=== PATIENT | female | born 1965 | race African-American/Black ===

== ENCOUNTER 2016-09-16 05:09 | Emergency (ER) | payer OTHER | END 2016-09-16 06:23 | disposition home or self-care (01) | LOC: BURERS 05:09 | DX: F41.0 Panic disorder [episodic paroxysmal anxiety] (principal); I10 Essential (primary) hypertension; E78.5 Hyperlipidemia, unspecified; F32.9 Major depressive disorder, single episode, unspecified | CPT/HCPCS: 93005 ==

== ENCOUNTER 2021-01-12 13:20 | Emergency (ER) | payer MEDICARE, OTHER, SELFPAY | END 2021-01-12 13:51 | disposition home or self-care (01) | LOC: BURERS 13:20 | DX: I10 Essential (primary) hypertension (principal); E78.5 Hyperlipidemia, unspecified; Z79.899 Other long term (current) drug therapy | CPT/HCPCS: 99283 ==

== ENCOUNTER 2021-02-07 19:55 | Emergency (ER) | payer MEDICARE ==
[2021-02-07] MEDS ORDERED: Acetaminophen 500 MG TAB ONE (20:52)
[2021-02-07 21:40] LABS: Bilirubin Negative (Negative); Blood, Urine Negative (Negative); Clarity Clear (Clear); Glucose, Urine (Dipstick) Negative (Negative); Ketone, Urine Trace mg/dL (Negative); Leukocyte Negative (Negative); Nitrite Negative (Negative); Protein, Urine (Dipstick) Negative (Neg-Trace); Urobilinogen 0.2 mg/dL (Less than 2); pH, Urine 5.5 (5.0-9.0)
[2021-02-07 21:43] LABS: Specific Gravity, Urine 1.023 (1.002-1.036)
== END 2021-02-07 22:00 | disposition home or self-care (01) ==
LOC: BURERS 19:55
DX: B34.9 Viral infection, unspecified (principal); E78.5 Hyperlipidemia, unspecified; I10 Essential (primary) hypertension
CPT/HCPCS: 81003; 99283